=== PATIENT | male | born 1995 | race Caucasian/White ===

== ENCOUNTER 2016-04-18 16:01 | Emergency (ER) | payer OTHER ==
[2016-04-18 16:12] VITALS: BP 140/65; PULSE 57; TEMP 98; BMI 33.6
--- NOTE | 2016-04-18 19:03 | PDOC ---
History of Present Illness <Xu Carter - Last Filed: 04/18/16 19:03> - General History Source: Patient Exam Limitations: No Limitations - History of Present Illness Initial Comments: 04/18/16 19:53 The patient is a 20 year old male, with no significant past medical history, who presents to the emergency department with a facial rash around both of his eyes and on the bridge of his nose for the past 4 days. The patient states that the rash is not itchy or painful. He states that he has been applying Neosporin to the affected area, with no relief. The patient presents today because the rash is persistent and thought he may be having an allergic reaction. However, the patient states that he has not eaten or come into contact with anything that he is allergic to over the past couple of days. The patient denies fever, chills, headache, any vision changes or any angioedema. Allergies: Shrimp Past Surgical History: None reported. Social History: Non smoker. Denies alcohol or drug use. PCP: Dr. Owen <Shiloh Martinez - Last Filed: 04/18/16 20:00> - General Chief Complaint: Allergic Reaction Stated Complaint: RASH Past History - Past Medical History Other medical history: none - Psycho/Social/Smoking Cessation Hx Suicidal Ideation: No Smoking History: Never smoked Have you smoked in the past 12 months: No Information on smoking cessation initiated: No Hx Alcohol Use: No Drug/Substance Use Hx: No Substance Use Type: None <RaulWilliamXu - Last Filed: 04/18/16 19:03> <Shiloh Martinez - Last Filed: 04/18/16 20:00> - Past Medical History Allergies/Adverse Reactions: Allergies Allergy/AdvReac Type Severity Reaction Status Date / Time shrimp Allergy Difficulty Verified 04/18/16 16:08 Breathing Home Medications: Ambulatory Orders Cephalexin [Keflex] 750 mg PO BID #14 capsule 04/18/16 Review of Systems - Review of Systems Able to Perform ROS?: Yes Comments:: 04/18/16 19:41 GENERAL/CONSTITUTIONAL: No fever or chills. No weakness. HEAD, EYES, EARS, NOSE AND THROAT: No change in vision. No ear pain or discharge. No sore throat. CARDIOVASCULAR: No chest pain or shortness of breath. RESPIRATORY: No cough, wheezing, or hemoptysis. GASTROINTESTINAL: No nausea, vomiting, diarrhea or constipation. GENITOURINARY: No dysuria, frequency, or change in urination. MUSCULOSKELETAL: No joint or muscle swelling or pain. No neck or back pain. SKIN: +Rash to the face around both eyes and bridge of nose. NEUROLOGIC: No headache, vertigo, loss of consciousness, or change in strength/ sensation. ENDOCRINE: No increased thirst. No abnormal weight change. HEMATOLOGIC/LYMPHATIC: No anemia, easy bleeding, or history of blood clots. ALLERGIC/IMMUNOLOGIC: No hives or skin allergy. <Shiloh Martinez - Last Filed: 04/18/16 20:00> *Physical Exam - Vital Signs Last Vital Signs Temp Pulse Resp BP Pulse Ox 98.0 F 57 L 18 140/65 100 04/18/16 16:08 04/18/16 16:08 04/18/16 16:08 04/18/16 16:08 04/18/16 16:08 <Xu Carter - Last Filed: 04/18/16 19:03> - Vital Signs Last Vital Signs Temp Pulse Resp BP Pulse Ox 98.0 F 57 L 18 140/65 100 04/18/16 16:08 04/18/16 16:08 04/18/16 16:08 04/18/16 16:08 04/18/16 16:08 - Physical Exam Comments: 04/18/16 19:58 GENERAL: Awake, alert, and fully oriented, in no acute distress. HEAD: No signs of trauma. EYES: PERRLA, EOMI, sclera anicteric, conjunctiva clear. No pain on motion of the eyes. ENT: No percussional tenderness over the sinuses. Auricles normal inspection, hearing grossly normal, nares patent, oropharynx clear without exudates. Moist mucosa. NECK: Normal ROM, supple, no lymphadenopathy, JVD, or masses. LUNGS: Breath sounds equal, clear to auscultation bilaterally. No wheezes, and no crackles. HEART: Regular rate and rhythm, normal S1 and S2, no murmurs, rubs or gallops. ABDOMEN: Soft, nontender, normoactive bowel sounds. No guarding, no rebound. No masses. EXTREMITIES: Normal range of motion, no edema. No clubbing or cyanosis. No cords, erythema, or tenderness. NEUROLOGICAL: Cranial nerves II through XII grossly intact. Normal speech, normal gait. SKIN: Erythema of the periorbital area. Warm, dry, normal turgor, no lesions noted. <Shiloh Martinez - Last Filed: 04/18/16 20:00> *DC/Admit/Observation/Transfer <Xu Carter - Last Filed: 04/18/16 19:03> - Attestations Scribe Attestion: 04/18/16 19:09 Documentation prepared by Shiloh Martinez, acting as manager medical affairs for Xu Carter MD, /DO. <Shiloh Martinez - Last Filed: 04/18/16 20:00> Diagnosis at time of Disposition: Cellulitis of periorbital region - Discharge Dispostion Disposition: HOME - Prescriptions Prescriptions: Cephalexin [Keflex] 750 mg PO BID #14 capsule - Referrals Referrals: Aliyah Owen MD [Primary Care Provider] - - Patient Instructions Printed Discharge Instructions: DI for Cellulitis -- Adult Additional Instructions: see Dr. Owen Thursday for follow up.
== END 2016-04-18 19:15 | disposition home or self-care (01) ==
LOC: JER 16:01
DX: H05.019 Cellulitis of unspecified orbit (principal)
CPT/HCPCS: 99282-25

== ENCOUNTER 2016-05-24 22:44 | Emergency (ER) | payer OTHER ==
[2016-05-24 22:49] VITALS: TEMP 98; BMI 21.9
--- NOTE | 2016-05-24 23:14 | PDOC ---
[id number] No Limitations - History of Present Illness Timing/Duration: 24 hours Associated Symptoms: reports: denies symptoms. denies: chest pain, cough, shortness of breath <Gonzalez Amador - Last Filed: 05/25/16 03:30> <Isidoro Torrez - Last Filed: 06/01/16 06:25> - General Chief Complaint: Allergic Reaction Stated Complaint: ALLERGIC REACTION Time Seen by Provider: 05/24/16 22:55 Past History - Travel Traveled outside of the country in the last 30 days: No Close contact w/someone who was outside of country & ill: No - Past Medical History Other medical history: denies - Psycho/Social/Smoking Cessation Hx Suicidal Ideation: No Smoking History: Never smoked Have you smoked in the past 12 months: No Hx Alcohol Use: No Drug/Substance Use Hx: No Substance Use Type: None <Gonzalez Amador - Last Filed: 05/25/16 03:30> <Isidoro Torrez - Last Filed: 06/01/16 06:25> - Past Medical History Allergies/Adverse Reactions: Allergies Allergy/AdvReac Type Severity Reaction Status Date / Time shrimp Allergy Difficulty Verified 05/24/16 22:49 Breathing Home Medications: Ambulatory Orders Fexofenadine HCl [Diana Allergy] 2 tab PO ONCE 05/24/16 Cephalexin [Keflex] 500 mg PO TID #21 capsule 05/25/16 Review of Systems - Review of Systems Able to Perform ROS?: Yes Comments:: 05/24/16 23:56 CONSTITUTIONAL: Absent: fever, chills, diaphoresis, generalized weakness, malaise, loss of appetite HEENT: Absent: rhinorrhea, nasal congestion, throat pain, throat swelling, difficulty swallowing, mouth swelling, ear pain, eye pain, visual Changes CARDIOVASCULAR: Absent: chest pain, loss of consciousness, palpitations, irregular heart rate, peripheral edema RESPIRATORY: Absent: cough, shortness of breath, dyspnea with exertion, orthopnea, wheezing, stridor, hemoptysis GASTROINTESTINAL: Absent: abdominal pain, abdominal distension, nausea, vomiting, diarrhea, constipation, melena, hematochezia GENITOURINARY: Absent: dysuria, frequency, urgency, hesitancy, hematuria, flank pain, genital pain MUSCULOSKELETAL: Absent: myalgia, arthralgia, joint swelling SKIN: facial redness Absent: rash, itching, pallor HEMATOLOGIC/IMMUNOLOGIC: Absent: easy bleeding, easy bruising, lymphadenopathy, frequent infections ENDOCRINE: Absent: unexplained weight gain, unexplained weight loss, heat intolerance, cold intolerance NEUROLOGIC: Absent: headache, focal weakness or paresthesias, dizziness, unsteady gait, seizure, mental status changes, bladder or bowel incontinence PSYCHIATRIC: Absent: anxiety, depression, suicidal or homicidal ideation, hallucinations. 05/24/16 23:57 Is the patient limited Guyanese proficient: No <Gonzalez Amador - Last Filed: 05/25/16 03:30> *Physical Exam - Vital Signs Last Vital Signs Temp Pulse Resp BP Pulse Ox 98 F 114 H 20 152/78 97 05/24/16 22:45 05/24/16 22:45 05/24/16 22:45 05/24/16 22:45 05/24/16 22:45 - Physical Exam Comments: 05/24/16 23:58 GENERAL: Well developed, well nourished. Awake and alert. No acute distress. HEENT: Normocephalic, atraumatic. PERRLA, EOMI. No conjunctival pallor. Sclera are non- icteric. Moist mucous membranes. Oropharynx is clear. NECK: Supple. Full ROM. No JVD. Carotid pulses 2+ and symmetric, without bruits. No thyromegaly. No lymphadenopathy. CARDIOVASCULAR: Regular rate and rhythm. No murmurs, rubs, or gallops. Distal pulses are 2+ and symmetric. PULMONARY: No evidence of respiratory distress. Lungs clear to auscultation bilaterally. No wheezing, rales or rhonchi. ABDOMINAL: Soft. Non-tender. Non-distended. No rebound or guarding. No organomegaly. Normoactive bowel sounds. MUSCULOSKELETAL Normal range of motion at all joints. No bony deformities or tenderness. No CVA tenderness. EXTREMITIES: No cyanosis. No clubbing. No edema. No calf tenderness. SKIN: erythema to mid facial region/bilat lower orbital region/nasal bridge; neg drainage; neg lymphangitis Warm and dry. Normal capillary refill. No jaundice. NEUROLOGICAL: Alert, awake, appropriate. Cranial nerves 2-12 intact. No deficits to light touch and temperature in face, upper extremities and lower extremities. No motor deficits in the in face, upper extremities and lower extremities. Normoreflexic in the upper and lower extremities. Normal speech. Toes are down- going bilaterally. Gait is normal without ataxia. PSYCHIATRIC: Cooperative. Good eye contact. Appropriate mood and affect. <Gonzalez Amador - Last Filed: 05/25/16 03:30> - Vital Signs Last Vital Signs Temp Pulse Resp BP Pulse Ox 98 F 90 18 104/72 99 05/24/16 22:45 05/25/16 04:02 05/25/16 04:02 05/25/16 04:02 05/25/16 04:02 <Isidoro Torrez - Last Filed: 06/01/16 06:25> ED Treatment Course - Medications Given in the ED: ED Medications Discontinued Medications Generic Name Dose Route Start Last Admin Trade Name Den PRN Reason Stop Dose Admin Diphenhydramine HCl 50 mg 05/25/16 00:55 05/25/16 01:00 Benadryl Injection - IVPUSH 05/25/16 00:56 50 mg ONCE ONE Administration Cefazolin Sodium 1 gm/ 50 mls @ 100 mls/hr 05/24/16 23:23 05/24/16 23:52 Dextrose IVPB 05/24/16 23:52 100 mls/hr ONCE ONE Administration Sodium Chloride 1,000 mls @ 1,000 mls/hr 05/24/16 23:23 05/24/16 23:52 Normal Saline - IV 05/25/16 00:22 1,000 mls/hr ASDIR STA Administration <Isidoro Torrez - Last Filed: 06/01/16 06:25> Medical Decision Making - Medical Decision Making 06/01/16 06:25 ED Attending note: I was available, involved in the case with the mid level provider as needed and in a limited capacity. <Isidoro Torrez - Last Filed: 06/01/16 06:25> *DC/Admit/Observation/Transfer <Gonzalez Amador - Last Filed: 05/25/16 03:30> <Isidoro Torrez - Last Filed: 06/01/16 06:25> Diagnosis at time of Disposition: Facial cellulitis - Discharge Dispostion Disposition: HOME Condition at time of disposition: Stable - Prescriptions Prescriptions: Cephalexin [Keflex] 500 mg PO TID #21 capsule - Referrals Referrals: Mali Cote MD [Staff Physician] - - Patient Instructions Printed Discharge Instructions: DI for Cellulitis -- Adult Additional Instructions: Rx: Keflex 500mg tid x5d Wound check in 2 days Follow up with your physician and lpn cma this week Return to the ER for severe/persistent/worsening symptoms, fever Progress Note - Progress Note Progress Note: 20-year-old male with no significant past medical history, who presents to the emergency department complaining of a mild mid section facial rash inferior to his eyes and on the bridge of his nose for the past 3 days. Patient states the rashes intermittently itch with mild irritation. Patient has been using Neosporin without relief. Patient says he usually uses the Neosporin and it takes care of the redness. Patient denies any new food or medication. He denies any shortness of breath, chest pain or difficulty swallowing. Patient denies fever, chills, headaches, nausea/vomiting, visual disturbance or angioedema. <Gonzalez Amador - Last Filed: 05/25/16 03:30>
[2016-05-24] MEDS ORDERED: SODIUM CHLORIDE 1,000 ML IV STA (23:23)
[2016-05-24] MEDS ORDERED: CEFAZOLIN 1 GM in DEXTROSE 5%-WATER - 50 ML IVPB ONE (23:23)
[2016-05-24] MEDS ORDERED: CEFAZOLIN (PRE-DOCKED) 50 ML IVPB ONE (23:33)
[2016-05-25 04:03] VITALS: BP 104/72; PULSE 90
== END 2016-05-25 04:00 | disposition home or self-care (01) ==
LOC: JER 22:44
PROC: 3E03329 Introduction of Other Anti-infective into Peripheral Vein, Percutaneous Approach (ICD-10-PCS; principal; 2016-05-24)
PROC: 3E033GC Introduction of Other Therapeutic Substance into Peripheral Vein, Percutaneous Approach (ICD-10-PCS; 2016-05-24)
DX: L03.211 Cellulitis of face (principal)
CPT/HCPCS: 96365; 96375; 99281-25

== ENCOUNTER 2019-03-16 13:14 | Emergency (ER) | payer OTHER ==
[2019-03-16 13:40] VITALS: BP 119/78; PULSE 80; TEMP 99; BMI 37.5
[2019-03-16] MEDS ORDERED: methylPREDNISolone NA SUCC 125 MG/2 ML VIAL IVPB ONE (14:40)
--- NOTE | 2019-03-16 14:44 | PDOC ---
History of Present Illness - General Chief Complaint: Rash Stated Complaint: FACE/ARM RASH Time Seen by Provider: 03/16/19 13:52 - History of Present Illness Initial Comments: 03/16/19 14:40 23-year-old male with rash x1 month no systemic symptoms. Under the care of a claim clinician and front line leader. The subspecialist are unsure of the etiology of the rash. Past History - Past Medical History Allergies/Adverse Reactions: Allergies Allergy/AdvReac Type Severity Reaction Status Date / Time shrimp Allergy Difficulty Verified 05/24/16 22:49 Breathing Home Medications: Ambulatory Orders Methylprednisolone [Medrol Dose Chong] 4 mg PO ASDIR #21 tablet 03/16/19 COPD: No - Immunization History Immunization Up to Date: Yes - Psycho Social/Smoking Cessation Hx Smoking History: Never smoked Have you smoked in the past 12 months: No Hx Alcohol Use: No Drug/Substance Use Hx: No Substance Use Type: None Review of Systems - Review of Systems Constitutional: No: Fever Integumentary: Yes: Rash *Physical Exam - Vital Signs Last Vital Signs Temp Pulse Resp BP Pulse Ox 99.0 F 80 16 119/78 100 03/16/19 13:33 03/16/19 13:33 03/16/19 13:33 03/16/19 13:33 03/16/19 13:33 - Physical Exam 03/16/19 14:42 GENERAL: The patient is awake, alert, and fully oriented, in no acute distress. HEAD: Normal with no signs of trauma. EYES: sclera anicteric, conjunctiva clear. ENT: Ears normal tympanic membranes normal oropharynx clear uvula midline NECK: Normal range of motion LUNGS: Breath sounds equal, clear to auscultation bilaterally. No wheezes, and no crackles. HEART: S1 and S2 without murmur, rub or gallop. ABDOMEN: Soft, nontender, normoactive bowel sounds. No guarding, no rebound. No masses. EXTREMITIES: Normal range of motion, no edema. No clubbing or cyanosis. No cords, erythema, or tenderness. NEUROLOGICAL: Cranial nerves II through XII grossly intact. Normal speech, normal gait. PSYCH: Normal mood, normal affect. SKIN: Warm, Dry, normal turgor, there is a erythemic raised rash about the face flexor surfaces of the upper extremities and anterior chest Medical Decision Making - Medical Decision Making 03/16/19 14:42 This appears to be seborrheic dermatitis. Will give a dose of Solu-Medrol in the emergency room sent home on Medrol Dosepak with dermatology follow-up Discharge - Discharge Information Problems reviewed: Yes Clinical Impression/Diagnosis: Dermatitis Condition: Stable Disposition: HOME - Admission No - Follow up/Referral Referrals: Jeaneth Manuel [Primary Care Provider] - Mali Cote MD [Staff Physician] - - Patient Discharge Instructions Patient Printed Discharge Instructions: Seborrheic Dermatitis Additional Instructions: Please start the steroid pack in the morning. Please take the medication as directed return to the emergency room for worsening symptoms and without fail follow-up with dermatology in 2 to 3 days for further evaluation and treatment options. - Post Discharge Activity
[2019-03-16] MEDS ORDERED: methylPREDNISolone NA SUCC 125 MG/2 ML VIAL ONE (14:48)
== END 2019-03-16 15:21 | disposition home or self-care (01) ==
LOC: JERFT 13:14
PROC: 3E0333Z Introduction of Anti-inflammatory into Peripheral Vein, Percutaneous Approach (ICD-10-PCS; principal; 2019-03-16)
DX: L30.9 Dermatitis, unspecified (principal); Z91.013 Allergy to seafood
CPT/HCPCS: 99281-25

== ENCOUNTER 2020-07-08 17:32 | Emergency (ER) | payer OTHER ==
[2020-07-08 17:47] VITALS: BP 102/65; PULSE 77; TEMP 98; BMI 31.3
[2020-07-08] MEDS ORDERED: DEXAMETHASONE SOD PHOSPHATE 10 MG/1 ML VIAL IM ONE (18:17)
[2020-07-08] MEDS ORDERED: DEXAMETHASONE SOD PHOSPHATE 10 MG/1 ML VIAL ONE (18:24)
[2020-07-08 19:07] LABS: BASO % 1.3 % (0-2.0); EOS % 12.3 % (0-4.5); HEMATOCRIT 44.2 % (35.4-49); HEMOGLOBIN 14.9 GM/dL (11.7-16.9); LYMPH % 26.6 % (8-40); MCH 31.5 pg (25.7-33.7); MCHC 33.6 g/dl (32.0-35.9); MEAN CELL VOLUME 93.7 fl (80-96); MEAN PLT VOLUME 9.5 fl (7.5-11.1); MONO % 6.8 % (3.8-10.2); PLATELET COUNT 264 K/MM3 (134-434); RBC 4.72 M/mm3 (4.00-5.60); RDW 14.7 % (11.9-15.9); WHITE BLOOD COUNT 7.8 K/mm3 (4.0-10.0)
[2020-07-08 19:26] LABS: CALCIUM 9.4 mg/dL (8.5-10.1)
[2020-07-08 19:27] LABS: ALBUMIN 3.9 g/dl (3.4-5.0); BLOOD UREA NITROGEN 9.4 mg/dL (7-18)
[2020-07-08 19:32] LABS: BILIRUBIN,TOTAL 0.3 mg/dL (0.2-1); TOT PROT 7.5 g/dl (6.4-8.2)
== END 2020-07-08 20:06 | disposition home or self-care (01) ==
LOC: JERFT 17:32
PROC: 3E0233Z Introduction of Anti-inflammatory into Muscle, Percutaneous Approach (ICD-10-PCS; principal; 2020-07-08)
DX: L42 Pityriasis rosea (principal)
CPT/HCPCS: 36415; 80053; 82272; 85025; 99284-25; J1100

== ENCOUNTER 2021-01-12 14:02 | Emergency (ER) | payer OTHER ==
[2021-01-12 14:06] VITALS: BP 106/60; PULSE 80; TEMP 98.1; BMI 38.3
[2021-01-12] MEDS ORDERED: predniSONE 20 MG TABLET (UD) PO ONE (15:45)
[2021-01-12] MEDS ORDERED: predniSONE 20 MG TABLET (UD) ONE (15:53)
== END 2021-01-12 15:55 | disposition home or self-care (01) ==
LOC: JERFT 14:02
DX: L71.9 Rosacea, unspecified (principal)
CPT/HCPCS: 99283-25

== ENCOUNTER 2021-02-09 12:22 | Emergency (ER) | payer OTHER ==
[2021-02-09 12:34] VITALS: BMI 29.5
[2021-02-09] MEDS ORDERED: SODIUM CHLORIDE 0.9% 500 ML INFUS.BAG IV ONE (13:31)
[2021-02-09] MEDS ORDERED: ACETAMINOPHEN 1000 MG/100 ML VIAL IVPB ONE (13:31)
[2021-02-09] MEDS ORDERED: FAMOTIDINE 20 MG/50 ML IVPB 20 MG/50 ML MG IVPB ONE (13:34)
[2021-02-09] MEDS ORDERED: methylPREDNISolone NA SUCC 125 MG/2 ML VIAL IVPUSH ONE (13:35)
[2021-02-09] MEDS ORDERED: ACETAMINOPHEN INJECTION 100 ML IVPB ONE (13:57)
[2021-02-09] MEDS ORDERED: methylPREDNISolone NA SUCC 125 MG/2 ML VIAL ONE (13:57)
[2021-02-09] MEDS ORDERED: FAMOTIDINE/PF 20 MG/2 ML VIAL ONE (13:58)
[2021-02-09 14:27] LABS: BASO % 0.3 % (0-2.0); EOS % 13.4 % (0-4.5); HEMATOCRIT 43.3 % (35.4-49); HEMOGLOBIN 14.9 GM/dL (11.7-16.9); LYMPH % 16.6 % (8-40); MCH 31.5 pg (25.7-33.7); MCHC 34.4 g/dl (32.0-35.9); MEAN CELL VOLUME 91.5 fl (80-96); MEAN PLT VOLUME 9.5 fl (7.5-11.1); MONO % 8.1 % (3.8-10.2); NEUT % 61.6 % (42.8-82.8); PLATELET COUNT 328 10^3/uL (134-434); RBC 4.73 M/mm3 (4.00-5.60); WHITE BLOOD COUNT 10.1 K/mm3 (4.0-10.0)
[2021-02-09] MEDS ORDERED: valACYclovir HCL 500 MG TABLET (FP) PO ONE (14:29)
[2021-02-09] MEDS ORDERED: PIPERACILLIN/TAZOB 3.375 GM 3.375 GM in DEXTROSE 5%-WATER - 50 ML IVPB ONE (14:30)
[2021-02-09] MEDS ORDERED: VANCOMYCIN 1 GM in D5W (PRE-DOCKED) 1,000 MG/250 ML IVPB ONE (14:30)
[2021-02-09] MEDS ORDERED: MUPIROCIN 2% TOPICAL OINTMENT 22 GM TUBE TP SCH (14:30)
[2021-02-09] MEDS ORDERED: PIPERACILLIN/TAZOB 3.375 GM 3.375 GM/50 ML BAG IVPB ONE (14:43)
[2021-02-09] MEDS ORDERED: valACYclovir HCL 500 MG TABLET (FP) ONE (14:43)
[2021-02-09] MEDS ORDERED: VANCOMYCIN 1 GRAM (PRE-DOCKED) 1,000 MG/250 ML BAG IVPB ONE (14:43)
[2021-02-09 14:45] LABS: CALCIUM 8.6 mg/dL (8.5-10.1)
[2021-02-09 14:46] LABS: ALBUMIN 3.4 g/dl (3.4-5.0); BLOOD UREA NITROGEN 5.7 mg/dL (7-18)
[2021-02-09 14:49] LABS: CREATININE 1.1 mg/dL (0.55-1.3)
[2021-02-09 14:51] LABS: BILIRUBIN,TOTAL 0.5 mg/dL (0.2-1); TOT PROT 6.6 g/dl (6.4-8.2)
[2021-02-09 15:14] LABS: ERYTHROCYTE SEDIMENTATION RATE 5 mm/hr (0-10)
[2021-02-09 15:16] LABS: INR 1.19 (0.83-1.09); PROTHROMBIN TIME (PATIENT) 13.9 SEC (9.7-13.0)
[2021-02-09 18:11] VITALS: TEMP 98.9
[2021-02-09] MEDS ORDERED: KETOROLAC TROMETHAMINE 15 MG/ML VIAL IVPUSH ONE (18:31)
[2021-02-09] MEDS ORDERED: KETOROLAC TROMETHAMINE 15 MG/ML VIAL ONE (19:33)
[2021-02-09 19:46] VITALS: BP 104/52; PULSE 79
== END 2021-02-09 23:38 | disposition short-term general hospital (02) ==
LOC: JERFT 12:22
PROC: 3E0333Z Introduction of Anti-inflammatory into Peripheral Vein, Percutaneous Approach (ICD-10-PCS; principal; 2021-02-09)
PROC: 3E033GC Introduction of Other Therapeutic Substance into Peripheral Vein, Percutaneous Approach (ICD-10-PCS; 2021-02-09)
PROC: 3E033GC Introduction of Other Therapeutic Substance into Peripheral Vein, Percutaneous Approach (ICD-10-PCS; 2021-02-09)
PROC: 3E033GC Introduction of Other Therapeutic Substance into Peripheral Vein, Percutaneous Approach (ICD-10-PCS; 2021-02-09)
PROC: 3E03329 Introduction of Other Anti-infective into Peripheral Vein, Percutaneous Approach (ICD-10-PCS; 2021-02-09)
PROC: 3E03329 Introduction of Other Anti-infective into Peripheral Vein, Percutaneous Approach (ICD-10-PCS; 2021-02-09)
DX: R21 Rash and other nonspecific skin eruption (principal)
CPT/HCPCS: 36415; 80053; 85025; 85610; 85651; 85730; 86140; 87040; 87186; 93005; 93010; 99284-25; C9803; J0131; U0003; U0005